=== PATIENT | male | born 1955 | race Caucasian/White ===

== ENCOUNTER 2019-11-27 14:19 | Emergency (ER) | payer OTHER ==
[~2019-11-27 14:19] MED LIST: Iopamidol-370 76% 500 ML 1 ML ONE
[2019-11-27 15:46] LABS: #Eosinphils 0.2 thou/uL (0.0-0.7); #Monocytes 0.2 thou/uL (0.11-0.59); #Neutrophils 6.9 thou/uL (1.40-6.50); %Basophils 0.4 % (0.0-1.0); %Eosinophils 2.1 % (0.0-10.0); %Lymphocytes 11.9 % (21.0-51.0); %Monocytes 2.1 % (0.0-10.0); %Neutrophils 83.4 % (42.0-75.0); Mean Corpuscular HGB CONC 31.3 g/dL (32.0-36.0); Mean Corpuscular Volume 86.4 fL (78.0-98.0); Mean Platelet Volume 8.4 fL (7.4-10.4); Platelet Count 233 thou/uL (130-400); RBC Distribution Width 13.9 % (11.5-14.5); Red Blood Cell (RBC) Count 5.17 mill/uL (4.70-6.10); White Blood Cell (WBC) Count 8.3 thou/uL (4.8-10.8)
--- NOTE | 2019-11-27 16:07 | RAD ---
CHEST 1 VIEW: HISTORY: COPD. Shortness of breath. Exposed to someone known to have COVID. Evaluate COVID status. COMPARISON: 07/04/2013. FINDINGS: Normal cardiac silhouette. Pulmonary vessels and hilum are normal. Costophrenic angles are clear. Patchy interstitial opacities. No consolidation or mass. No pneumothorax or acute osseous abnormali ties. IMPRESSION: Patchy interstitial opacities. Viral/atypical pneumonia cannot be excluded. Correlate clinically. POS: [facility]
[2019-11-27 16:12] LABS: ALT (SGPT) 63 U/L (8-55); AST (SGOT) 39 U/L (5-34); Albumin 4.5 g/dL (3.4-4.8); Alkaline Phosphatase 143 U/L (40-110); Anion Gap 17 mmol/L (10-20); BUN (Urea Nitrogen) 11 mg/dL (8.4-25.7); Bilirubin, Total 0.6 mg/dL (0.2-1.2); CK (CPK) 161 U/L (30-200); Calc. Creatinine Clearance 0 mL/min (70-130); Calcium 9.4 mg/dL (7.8-10.44); Carbon Dioxide 22 mmol/L (23-31); Chloride 103 mmol/L (98-107); Estimated GFR-MDRD Greater than 90; Globulin 3.2 g/dL (2.4-3.5); Glucose 133 mg/dL (80-115); Lipase 12 U/L (8-78); Protein, Total 7.7 g/dL (5.8-8.1); Sodium 138 mmol/L (136-145)
--- NOTE | 2019-11-27 17:53 | CT ---
CT ANGIOGRAM THORAX WITH CONTRAST: (CTA pulmonary angiogram) DATE: 11/27/2019 HISTORY: 64-year-old male with dyspnea TECHNIQUE: IV injection of iodinated contrast. Scan acquisition timing attempted to coincide with iodinated contrast bolus reaching maximal density in pulmonary arteries. 3-D MIP reconstructions. FINDINGS: There are numerous large subpleural bullae at the upper lobes, but especially at the lower lobes, rig ht worse than left. There are also very large number of small and tiny blebs in subpleural spaces. Located at the superior segment of left lower lobe, posterior and medial to infrahilar bronchi and ve ssels, there is a 2.5 x 3 x 1 cm platelike soft tissue attenuation lesion with air bronchograms. No other major consolidation, pneumothorax, or pleural effusion. Trachea and major bronchi are patent and clear. No thoracic aortic aneurysm or dissection, but atherosclerosis present. No thrombus identified in the pulmonic trunk, left and right main pulmonary arteries, or in proximal, mid, and di stal branches. No cardiomegaly. Small pericardial effusion. Stent versus heavily calcified plaque in the LAD and LCx. The bilateral piriform sinuses are dilated with air, indicating attempted high air intake due to dysp vasquez. IMPRESSION: 1) severe paraseptal emphysema 2) no pulmonary thromboembolism. 3) coronary atherosclerosis due to calcified coronary lesion. 4) small pericardial effusion. 5) an unusual platelike consolidation located at the medial aspect of the superior segment of the lef t lower lobe. Etiology uncertain. Chronic versus acute. Recommend serial follow-up chest CTs beginning in one month.
[2019-11-28 11:22] LABS: SARS-CoV-2 MS2 Positive; SARS-CoV-2 N Gene Negative; SARS-CoV-2 S Gene Negative; SARS-CoV-2 orf1ab Negative
--- NOTE | 2019-12-07 16:53 | EKG ---
Test Reason : SOB Blood Pressure : / mmHG Vent. Rate : 073 BPM Atrial Rate : 075 BPM P-R Int : 116 ms QRS Dur : 076 ms QT Int : 358 ms P-R-T Axes : 048 072 012 degrees QTc Int : 394 ms Normal sinus rhythm Nonspecific ST and T wave abnormality Abnormal ECG Confirmed by DEB NOBLES, LETICIA ([id number]), editor city TOMMY ROBERTS ([id number]) on 12/07/2019 4:52:37 PM Referred By: SAHRA Confirmed By:LETICIA BOYD MD
== END 2019-11-27 19:00 ==
LOC: ERS 14:19
DX: J43.9 Emphysema, unspecified (principal); J20.9 Acute bronchitis, unspecified; Z20.828 Contact with and (suspected) exposure to other viral communicable diseases; I10 Essential (primary) hypertension; E03.9 Hypothyroidism, unspecified; I25.2 Old myocardial infarction; I25.10 Atherosclerotic heart disease of native coronary artery without angina pectoris; Z87.891 Personal history of nicotine dependence; Z79.51 Long term (current) use of inhaled steroids; Z79.82 Long term (current) use of aspirin; Z79.899 Other long term (current) drug therapy
CPT/HCPCS: 36415; 71045; 71275; 80053; 82550; 83690; 83880; 84484; 85025; 85379; 87635; 93005; 94760; 96360; 96361; Q9967; U0003

== ENCOUNTER 2020-02-03 20:22 | Emergency (ER) | payer OTHER ==
[2020-02-03] MEDS ORDERED: methylPREDNISolone Sod Succ/PF 125 MG/2 ML VIAL ONE (21:07)
--- NOTE | 2020-02-03 21:37 | RAD ---
FRONTAL RADIOGRAPH CHEST: 02/03/20 COMPARISON: 11/27/19 HISTORY: COPD, hypoxia. FINDINGS: There has been interval development of coarse linear density in the perihilar regions in both lung ba ses with peripheral bibasilar ground glass opacity. There is pulmonary hyperinflation suggesting COPD in the proper clinical setting. IMPRESSION: Interval development of interstitial and ground glass opacity within the lung bases suspicious for at ypical infectious pneumonitis, such as COVID-19. POS: [facility]
[2020-02-03 22:07] LABS: #Eosinphils 0.4 thou/uL (0.0-0.7); #Lymphocytes 1.7 thou/uL (1.20-3.40); #Monocytes 0.7 thou/uL (0.11-0.59); #Neutrophils 6.8 thou/uL (1.40-6.50); %Basophils 0.3 % (0.0-1.0); %Eosinophils 3.7 % (0.0-10.0); %Lymphocytes 17.9 % (21.0-51.0); %Monocytes 7.3 % (0.0-10.0); %Neutrophils 70.8 % (42.0-75.0); Hemoglobin 13.3 g/dL (14.0-18.0); Mean Corpuscular HGB CONC 30.5 g/dL (32.0-36.0); Mean Corpuscular Hemoglobin 26.4 pg (27.0-31.0); Mean Corpuscular Volume 86.4 fL (78.0-98.0); Platelet Count 338 thou/uL (130-400); RBC Distribution Width 15.1 % (11.5-14.5); Red Blood Cell (RBC) Count 5.06 mill/uL (4.70-6.10); White Blood Cell (WBC) Count 9.7 thou/uL (4.8-10.8)
[2020-02-03 22:30] LABS: ALT (SGPT) 92 U/L (8-55); AST (SGOT) 51 U/L (5-34); Alkaline Phosphatase 144 U/L (40-110); Anion Gap 16 mmol/L (10-20); BUN (Urea Nitrogen) 17 mg/dL (8.4-25.7); Bilirubin, Total 0.5 mg/dL (0.2-1.2); CK (CPK) 256 U/L (30-200); Calc. Creatinine Clearance 0 mL/min (70-130); Calcium 8.9 mg/dL (7.8-10.44); Carbon Dioxide 22 mmol/L (23-31); Chloride 98 mmol/L (98-107); Estimated GFR-MDRD Greater than 90; Globulin 3.6 g/dL (2.4-3.5); Glucose 118 mg/dL (80-115); Potassium 4.3 mmol/L (3.5-5.1); Protein, Total 7.6 g/dL (5.8-8.1); Sodium 132 mmol/L (136-145)
[2020-02-03 23:00] LABS: CKMB 9.5 ng/mL (0-6.6)
[2020-02-03] MEDS ORDERED: Aspirin Chewable 81 MG TAB ONE (23:02)
[2020-02-04 02:12] LABS: Troponin I 0.084 ng/mL (< 0.028)
[2020-02-04 12:40] LABS: SARS-CoV-2 MS2 Positive; SARS-CoV-2 N Gene Negative; SARS-CoV-2 S Gene Negative; SARS-CoV-2 orf1ab Negative
== END 2020-02-04 07:46 | disposition short-term general hospital (02) ==
LOC: ERS 20:22
DX: R06.00 Dyspnea, unspecified (principal); R79.89 Other specified abnormal findings of blood chemistry; I25.10 Atherosclerotic heart disease of native coronary artery without angina pectoris; E03.9 Hypothyroidism, unspecified; I25.2 Old myocardial infarction; I10 Essential (primary) hypertension; Z87.891 Personal history of nicotine dependence; Z20.828 Contact with and (suspected) exposure to other viral communicable diseases; Z79.82 Long term (current) use of aspirin; Z79.899 Other long term (current) drug therapy
CPT/HCPCS: 36415; 71045; 80053; 82550; 82553; 84484; 85025; 87635; 93005; 96374; J2930; U0003